=== PATIENT | male | born 1965 | race Caucasian/White ===

== ENCOUNTER 2023-05-31 10:25 | Emergency (ER) | payer BC ==
[2023-05-31 10:56] VITALS: BP 151/96; PULSE 56; RESP 18; TEMP 98; BMI 28.7
== END 2023-05-31 12:03 | disposition home or self-care (01) ==
LOC: FER 10:25
PROC: 0HQGXZZ Repair Left Hand Skin, External Approach (ICD-10-PCS; principal; 2023-05-31)
DX: S61.412A Laceration without foreign body of left hand, initial encounter (principal); X58.XXXA Exposure to other specified factors, initial encounter
CPT/HCPCS: 73130-TC-LT-FY; 99283-25